=== PATIENT | male | born 1965 | race Caucasian/White ===

== ENCOUNTER 2020-05-17 10:09 | Emergency (ER) | payer MEDICAID ==
[~2020-05-17] VITALS: Ht 167.6 cm; Wt 72.7 kg
[2020-05-17] MEDS ORDERED: METF-960 PO (10:14)
[2020-05-17 12:38] VITALS: BP 150/103
== END 2020-05-17 12:35 | disposition home or self-care (01) ==
LOC: EMS 10:18
DX: H26.9 Unspecified cataract (principal); I10 Essential (primary) hypertension; E11.9 Type 2 diabetes mellitus without complications
CPT/HCPCS: Z7502